=== PATIENT | female | born 1965 | race Caucasian/White ===

== ENCOUNTER 2018-02-20 11:57 | Day surgery (SDC) | payer OTHER ==
[2018-02-20] MEDS ORDERED: MIDAZOLAM 1 MG/ML 2 ML INJ ×4 (16:50→16:52)
[2018-02-20] MEDS ORDERED: FENTAnyl 50 MCG/ML VIAL (16:50)
== END 2018-02-20 16:40 | disposition home or self-care (01) ==
LOC: GIL 11:57
DX: Z12.11 Encounter for screening for malignant neoplasm of colon (principal)
CPT/HCPCS: 45378